=== PATIENT | female | born 1960 | race African-American/Black ===

== ENCOUNTER 2019-01-16 21:35 | Observation (INO) ==
[2019-01-16] MEDS ORDERED: HYDROmorphone 2 MG/1 ML VIAL IV STA (21:54)
[2019-01-16] MEDS ORDERED: ALUM/MAG/SIMETH/LIDO VISC 1:1 30 ML BOTTLE PO STA (21:54)
[2019-01-16] MEDS ORDERED: ONDANSETRON 4 MG/2 ML VIAL IV STA (21:54)
[2019-01-16] MEDS ORDERED: ASPIRIN 325 MG TABLET PO STA (21:54)
[2019-01-16] MEDS ORDERED: NITROGLYCERIN 2% OINT 1 INCH/GM PACK TOP STA (21:54)
[2019-01-16 22:35] LABS: INR 0.9
[2019-01-16 22:38] LABS: Alanine Aminotransferase 24 U/L (13-56); Albumin 3.7 G/DL (3.4-5.0); Alkaline Phosphatase 122 U/L (45-117); Aspartate Amino Transferase 16 U/L (0-37); Bilirubin,Total < 0.39 MG/DL (0.2-1.0); Blood Urea Nitrogen 15 MG/DL (7-18); Calcium 9.1 MG/DL (8.5-10.1); Estimated Glom Filtration Rate 102 ML/MIN; Glucose 89 MG/DL (74-106); Osmolality,Calculated 287.7 MOS/KG (273-304); Total Protein 6.7 G/DL (6.4-8.3)
[2019-01-16 22:51] LABS: Basophils % 0.6 % (0.0-0.8); Eosinophils # 0.2 10*3/uL (0.0-0.87); Eosinophils % 4.2 % (0.00-10.9); Hematocrit 38.8 VOL% (35.7-47.0); Immature Granulocytes % 0.2 %; Immature Granulocytes Absolute 0.01 #; Lymphocytes # 2.9 10*3/uL (1.4-4.0); Lymphocytes % 57.5 % (21.3-54.2); Mean Corpuscular HGB Conc 33.5 GM/DL (32-36); Mean Platelet Volume 9.8 FL (9.6-12.0); Monocytes % 8.5 % (1.7-12.7); Platelet Count 202 T/CUMM (130-400); Red Blood Count 4.31 MC/CUMM (3.8-5.5); Red Cell Distribution Width 13.2 % (9.3-17.3)
[2019-01-16] MEDS ORDERED: ONDANSETRON 4 MG/2 ML VIAL IV PRN (23:39)
[2019-01-16] MEDS ORDERED: GLUCAGON 1 MG VIAL IM PRN (23:39)
[2019-01-16] MEDS ORDERED: DEXTROSE 50% 25 GM/50 ML VIAL IV PRN (23:39)
[2019-01-16 23:45] LABS: Barbiturates Screen,Urine Negative (Negative); Benzodiazepines Screen,Urine Negative (Negative); Cannabinoid Screen,Urine Negative (Negative); Opiate Screen,Urine Positive (Negative); Phencyclidine Screen,Urine Negative (Negative)
[2019-01-17 00:18] LABS: Eosinophils 2 % (0-10); Lymphocytes 66 % (20-55); Platelet Estimate Decreased; Polychromasia Few; Segmented Neutrophils 24 % (50-85); Total Cells Counted 100
[2019-01-17 00:35] LABS: Apearance,Urine Slightly Hazy (Clear); Bacteria,Urine Occasional /HPF (Few); Bilirubin,Urine Negative (Negative); Blood, Urine Moderate mg/dL (Negative); Glucose,Urine (UA) Negative (Negative); Ketones,Urine Negative (Negative); Mucus,Urine Occasional /LPF (Occasional); Nitrite,Urine Negative (Negative); Protein,Urine Negative; RBC,Urine 11 /HPF (0-4); Squamous Epithelial Cell,Urine Occasional /HPF (0-10); Urine Color Yellow (Yellow); Urine Specific Gravity 1.018 (1.001-1.035); Urine Urobilinogen < 2.0 EU/DL (0.2-1.0); WBC,Urine 4 /HPF (0-6)
[2019-01-17] MEDS: NITROGLYCERIN 2% OINT 1 INCH/GM PACK TOP SCH ×3 (02:47→13:08)
[2019-01-17] MEDS: ENOXAPARIN 40 MG/0.4 ML SYRINGE SUBCUT SCH ×2 (04:07→11:12)
[2019-01-17 06:38] LABS: HDL Cholesterol 70 MG/DL (40-60); Risk Ratio 2.14; Triglycerides 58 MG/DL (2-150); Troponin I 0.019 NG/ML (0.00-0.045); VLDL CHOLESTEROL 11.6 MG/DL
[2019-01-17 08:05] LABS: Troponin I < 0.015 NG/ML (0.00-0.045)
[2019-01-17] MEDS ORDERED: KETOROLAC 15 MG/1 ML VIAL IV ONE (10:47)
[2019-01-17] MEDS ORDERED: methylPREDNISolone 4 MG TABLET PO SCH (11:00)
[2019-01-17] MEDS ORDERED: PANTOPRAZOLE 40 MG TABLET PO SCH (11:00)
[2019-01-17 12:17] VITALS: BP 97/61
== END 2019-01-17 15:05 | disposition home or self-care (01) ==
LOC: N.EDINP 21:35 → N.ED 21:35 → N.2W 01-17 00:06
PROVIDERS: ADMIT Hospitalist; ATTEND Hospitalist